=== PATIENT | male | born 1950 | race African-American/Black ===

== ENCOUNTER → 2020-06-20 13:57 | Outpatient (BNVA) | payer MEDICARE, SELFPAY | PROVIDERS: PCP Internal Medicine; Referring Provider Internal Medicine; Visit Provider Urology | DX: Z76.89 Persons encountering health services in other specified circumstances (principal) ==

== ENCOUNTER 2020-09-24 10:00 | Outpatient (REF) | payer MEDICARE, SELFPAY ==
[2020-09-24 15:17] LABS: Prostate Specific Antigen < 0.05 ng/mL (<0.05-4.0)
== END 2020-09-24 10:01 | disposition home or self-care (01) ==
LOC: HO.10HDL 10:00
PROVIDERS: Visit Provider Urology
DX: C61 Malignant neoplasm of prostate (principal)
CPT/HCPCS: 36415; 84153

== ENCOUNTER → 2020-09-25 14:15 | Outpatient (BNVA) | payer MEDICARE, SELFPAY | PROVIDERS: PCP Internal Medicine; Visit Provider Urology | DX: N52.01 Erectile dysfunction due to arterial insufficiency (principal); C61 Malignant neoplasm of prostate | CPT/HCPCS: 99212 ==

== ENCOUNTER 2020-12-03 11:38 | Outpatient (REF) | payer MEDICARE, SELFPAY ==
[2020-12-03 14:02] LABS: Prostate Specific Antigen < 0.05 ng/mL (<0.05-4.0)
[2020-12-07 08:17] LABS: Testosterone, Total 7 ng/dL (250-1100)
== END 2020-12-03 11:39 | disposition home or self-care (01) ==
LOC: HO.10HDL 11:38
PROVIDERS: Visit Provider Urology
DX: Z12.5 Encounter for screening for malignant neoplasm of prostate (principal); C61 Malignant neoplasm of prostate; E29.1 Testicular hypofunction
CPT/HCPCS: 36415; 84153; 84403

== ENCOUNTER → 2020-12-10 08:55 | Outpatient (BNVA) | payer MEDICARE, SELFPAY | PROVIDERS: PCP Internal Medicine; Visit Provider Urology | DX: C61 Malignant neoplasm of prostate (principal); R97.21 Rising PSA following treatment for malignant neoplasm of prostate | CPT/HCPCS: 96402; 99212; J9217 ==

== ENCOUNTER 2021-04-22 08:34 | Outpatient (REF) | payer MEDICARE, SELFPAY ==
[2021-04-22 11:03] LABS: Prostate Specific Antigen < 0.05 ng/mL (<0.05-4.0)
[2021-04-27 09:57] LABS: Testosterone, Total 2 ng/dL (250-1100)
== END 2021-04-22 08:35 | disposition home or self-care (01) ==
LOC: HO.10HDL 08:34
PROVIDERS: Visit Provider Urology
DX: Z12.5 Encounter for screening for malignant neoplasm of prostate (principal); N40.1 Benign prostatic hyperplasia with lower urinary tract symptoms; N13.8 Other obstructive and reflux uropathy
CPT/HCPCS: 36415; 84153; 84403

== ENCOUNTER → 2021-04-24 13:09 | Outpatient (BNVA) | payer MEDICARE, SELFPAY | PROVIDERS: PCP Internal Medicine; Visit Provider Urology | DX: R97.21 Rising PSA following treatment for malignant neoplasm of prostate (principal); C61 Malignant neoplasm of prostate | CPT/HCPCS: 99212 ==

== ENCOUNTER → 2021-06-05 09:26 | Outpatient (BNVA) | payer MEDICARE, SELFPAY | PROVIDERS: PCP Internal Medicine; Visit Provider Urology | DX: R97.21 Rising PSA following treatment for malignant neoplasm of prostate (principal); C61 Malignant neoplasm of prostate | CPT/HCPCS: 96402; 99212; J9217 ==

== ENCOUNTER 2021-09-04 09:33 | Outpatient (REF) | payer MEDICARE, SELFPAY ==
[2021-09-04 11:22] LABS: Prostate Specific Antigen < 0.05 ng/mL (<0.05-4.0)
[2021-09-09 15:06] LABS: Testosterone, Total 8 ng/dL (250-1100)
== END 2021-09-04 09:34 | disposition home or self-care (01) ==
LOC: HO.10HDL 09:33
PROVIDERS: Visit Provider Urology
DX: Z12.5 Encounter for screening for malignant neoplasm of prostate (principal); R97.20 Elevated prostate specific antigen [PSA]
CPT/HCPCS: 36415; 84153; 84403

== ENCOUNTER → 2021-12-18 09:22 | Outpatient (BNVA) | payer MEDICARE, SELFPAY | PROVIDERS: PCP Internal Medicine; Visit Provider Urology | DX: R97.20 Elevated prostate specific antigen [PSA] (principal); C61 Malignant neoplasm of prostate | CPT/HCPCS: 99212 ==

== ENCOUNTER 2021-12-18 10:29 | Outpatient (REF) | payer MEDICARE, SELFPAY ==
[2021-12-18 14:51] LABS: Prostate Specific Antigen 0.18 ng/mL (<0.05-4.0)
[2021-12-23 09:11] LABS: Testosterone, Total 2 ng/dL (250-1100)
== END 2021-12-18 10:30 | disposition home or self-care (01) ==
LOC: HO.HMGCLDS 10:29
PROVIDERS: Visit Provider Urology
DX: Z12.5 Encounter for screening for malignant neoplasm of prostate (principal); R97.21 Rising PSA following treatment for malignant neoplasm of prostate
CPT/HCPCS: 36415; 84153; 84403

== ENCOUNTER 2022-01-12 10:53 | Outpatient (REF) | payer MEDICARE, SELFPAY ==
[2022-01-12 14:34] LABS: Prostate Specific Antigen 0.32 ng/mL (<0.05-4.0)
[2022-01-17 11:06] LABS: Testosterone, Total 7 ng/dL (250-1100)
== END 2022-01-12 10:54 | disposition home or self-care (01) ==
LOC: HO.HMGCLDS 10:53
PROVIDERS: Visit Provider Urology
DX: R97.21 Rising PSA following treatment for malignant neoplasm of prostate (principal); Z12.5 Encounter for screening for malignant neoplasm of prostate
CPT/HCPCS: 36415; 84153; 84403

== ENCOUNTER 2022-03-20 08:05 | Outpatient (REF) | payer MEDICARE, SELFPAY ==
--- NOTE | ~2022-03-20 | MM_ITS ---
EXAMINATION: BONE DENSITOMETRY CLINICAL INDICATION: Other specified disorders of bone density and structure. COMPARISON: None (current study represents initial baseline exam). TECHNIQUE: Using a [employer] DXA System (software version: 13.1) manufactured by [employer], dual-energy x-ray absorptiometry was performed of the lumbar spine and left hip. The images are of good technical quality. Summary results are attached. FINDINGS: AP SPINE L1-L4: BMD 1.408 g/cm2, Z-score 1.0, T-score 1.6, normal. LEFT FEMUR, NECK: BMD 1.048 g/cm2, Z-score -0.2, T-score -0.2, normal. LEFT FEMUR, TOTAL: BMD 1.077 g/cm2, Z-score -0.6, T-score -0.2, normal. IDENTIFIED RISK FACTORS: Height loss, thiazide. HISTORY OF FRACTURE: None listed. MEDICATIONS: Vitamin D. MM/XR DEXA axial skeleton IMPRESSION: 1. DIAGNOSIS: Normal bone density based on the lowest T-score value of -0.2 in the femoral neck and total femur applying World Health Organization criteria. 2. 10-YEAR FRACTURE RISK PREDICTION, FRAX: According to the guidelines, FRAX calculation should only be performed on patients in the osteopenia bone density category. Therefore, FRAX was not performed on this patient. 3. Treatment Recommendations: NOF guidelines recommend consideration for treatment in postmenopausal women and men age 50 and older presenting with the following: -A hip or vertebral (clinical or morphometric) fracture. -T-score less than or equal to -2.5 at the femoral neck or spine after appropriate evaluation to exclude secondary causes. -Low bone mass at the hip or spine and a 10-year fracture probability by FRAX of greater than or equal to 3% for hip fracture or greater than or equal to 20% for major osteoporotic fracture based on the [place] adapted WHO algorithm. 4. Other Recommendations: All treatment decisions require clinical judgment and consideration of individual patient factors, including patient preferences, comorbidities, previous drug use, risk factors not captured in the FRAX model (e.g. frailty, falls, vitamin D deficiency, increased bone turnover, interval significant decline in bone density) and possible under or overestimation of fracture risk by FRAX. FUTURE SCAN RECOMMENDATION: People with diagnosed cases of osteoporosis or at high risk for fracture should have regular bone mineral density tests. For patients eligible for Medicare, routine testing is allowed once every 2 years. The testing frequency can be increased to one year for patients who have rapidly progressing disease, those who are receiving or discontinuing medical therapy to restore bone mass, or have additional risk factors.
== END 2022-03-20 08:06 | disposition home or self-care (01) ==
LOC: HO.MAMMO 08:05
PROVIDERS: Visit Provider Urology
DX: Z13.820 Encounter for screening for osteoporosis (principal); M85.80 Other specified disorders of bone density and structure, unspecified site; R97.21 Rising PSA following treatment for malignant neoplasm of prostate; Z79.899 Other long term (current) drug therapy
CPT/HCPCS: 77080

== ENCOUNTER → 2022-04-17 08:31 | Outpatient (BNVA) | payer MEDICARE, SELFPAY | PROVIDERS: PCP Internal Medicine; Visit Provider Urology | DX: C61 Malignant neoplasm of prostate (principal); R97.21 Rising PSA following treatment for malignant neoplasm of prostate | CPT/HCPCS: 99212 ==

== ENCOUNTER 2022-07-28 09:21 | Outpatient (REF) | payer MEDICARE, SELFPAY ==
[2022-08-01 14:26] LABS: Testosterone, Total 199 ng/dL (250-1100)
== END 2022-07-28 09:22 | disposition home or self-care (01) ==
LOC: HO.HMGCLDS 09:21
PROVIDERS: PCP Internal Medicine; Visit Provider Urology
DX: R97.21 Rising PSA following treatment for malignant neoplasm of prostate (principal); Z12.5 Encounter for screening for malignant neoplasm of prostate
CPT/HCPCS: 36415; 84153; 84403

== ENCOUNTER → 2022-08-12 14:15 | Outpatient (BNVA) | payer MEDICARE, SELFPAY | PROVIDERS: PCP Internal Medicine; Visit Provider Urology | DX: R97.21 Rising PSA following treatment for malignant neoplasm of prostate (principal); C61 Malignant neoplasm of prostate; N52.9 Male erectile dysfunction, unspecified; Z79.899 Other long term (current) drug therapy | CPT/HCPCS: 99212 ==

== ENCOUNTER → 2022-09-03 13:46 | Outpatient (BNVA) | payer MEDICARE, SELFPAY | PROVIDERS: PCP Internal Medicine; Visit Provider Urology | DX: C61 Malignant neoplasm of prostate (principal) | CPT/HCPCS: 96402; J9217 ==

== ENCOUNTER → 2022-09-17 11:40 | Outpatient (BNVA) | payer MEDICARE, SELFPAY | PROVIDERS: PCP Internal Medicine; Visit Provider Urology | DX: R97.20 Elevated prostate specific antigen [PSA] (principal); C61 Malignant neoplasm of prostate | CPT/HCPCS: Q3014 ==

== ENCOUNTER 2022-10-06 13:59 | Outpatient (REF) | payer MEDICARE, SELFPAY ==
[2022-10-06 16:55] LABS: Blood Urea Nitrogen 18 mg/dL (9-16); Estimated Glomerular Filt Rate 59
[2022-10-06 17:11] LABS: Prostate Specific Antigen 9.21 ng/mL (<0.05-4.0)
[2022-10-11 13:44] LABS: Testosterone, Total 4 ng/dL (250-1100)
== END 2022-10-06 14:00 | disposition home or self-care (01) ==
LOC: HO.HMGCLDS 13:59
PROVIDERS: PCP Internal Medicine; Visit Provider Urology
DX: Z12.5 Encounter for screening for malignant neoplasm of prostate (principal); R97.21 Rising PSA following treatment for malignant neoplasm of prostate
CPT/HCPCS: 36415; 82565; 84153; 84403; 84520

== ENCOUNTER → 2022-10-15 15:13 | Outpatient (BNVA) | payer MEDICARE, SELFPAY | PROVIDERS: PCP Internal Medicine; Visit Provider Urology | DX: C61 Malignant neoplasm of prostate (principal); N52.01 Erectile dysfunction due to arterial insufficiency | CPT/HCPCS: Q3014 ==

== ENCOUNTER 2023-03-01 10:55 | Outpatient (REF) | payer MEDICARE, SELFPAY ==
[2023-03-01 14:18] LABS: Blood Urea Nitrogen 20 mg/dL (9-16); Estimated Glomerular Filt Rate 58
[2023-03-01 14:38] LABS: Prostate Specific Antigen 19.81 ng/mL (<0.05-4.0)
[2023-03-07 12:33] LABS: Testosterone, Total 6 ng/dL (250-1100)
== END 2023-03-01 10:56 | disposition home or self-care (01) ==
LOC: HO.HMGCLDS 10:55
PROVIDERS: PCP Internal Medicine; Visit Provider Urology
DX: R39.15 Urgency of urination (principal); R97.21 Rising PSA following treatment for malignant neoplasm of prostate; Z12.5 Encounter for screening for malignant neoplasm of prostate
CPT/HCPCS: 36415; 82565; 84153; 84403; 84520

== ENCOUNTER 2023-04-02 13:20 | Outpatient (AMB) | payer MEDICARE, SELFPAY ==
--- NOTE | 2023-04-02 13:20 | A.OFFVIS_ITS ---
Intake Intake Visit Reasons: PET CT results/Send results to Dr. Norris([facility]?) Intake Note: Patient is present for Telephone PET CT Follow up Urology Med: Bicalutamide, Tadalafil Antibiotic Allergy: Priamycin Blood Thinner:None Allergies aspirin Adverse Reaction (Unknown, Verified 04/02/23 13:25) stomach upset priamycin Allergy (Unknown, Uncoded 04/02/23 13:25) rash HPI HPI Comments History of Present Illness Details Saadia is a very pleasant [place] male. He is a patient of Dr Smiley. He is seen for the following urologic conditions - prostate cancer Telemedicine Evaluation 15 min Consultation Doximity Viola Video attempted 04/11 PSA continuing to rise now 19, T6 Repeated PET-CT at [facility] Confirms tracer uptake in prostate and no evidence of metastatic disease Has upcoming appointment with Dr. Gardner for assessment of boost radiation 4 month follow-up 09/10 GnRH re-initiated 09/03/22 after 2 weeks bicalutamide MRI shows recurrent disease within prostate Radiation Oncology assessment 10/12 Dr. Mcelroy at [facility] Referral to [facility] Dr. Gardner PSA - 10/10 PSA < 0.05, 12/08 PSA < 0.05 T 7, 05/10 <0.01, 09/09 <0.1 8, 01/09 0.3 7, 08/11 P 23 T 199, 10/12 9.2 T4, 03/12 19 Prostate cancer: Initial [place] 6 treatment brachytherapy 2007 followed by ris ing PSA Last GnRH 09/03/22 Prostate cancer was diagnosed 2007. The [place] grade is 3+3 volume 27 g, initial PSA 6.4. TNM Classification of Malignant Tumours (TNM) T1c. The D'Jyoti (NCCN) risk category is Low Risk (PSA< 10, Gl < 7, T1c). Initial therapy included 2007 brachytherapy, - observation November 2015, hormonal therapy finasteride and bicalutamide Oct 2016 Finasteride, bicalutamide, tamoxifen for breast tenderness Jun 2017 Finasteride 3x a week, bicalutamide daily, tamoxifen weekly 01/05 Dutasteride daily, tamoxifen weekly for breast tenderness 06/20/20 GnRH with Xtandi - 12/08 GnRH, 06/10 GnRH - 12/09 break from hormone therapy Recent labs included a PSA (prostate-specific antigen) Jun 2017 1.0 01/05 4.5 T 795 04/06 5.9 07/07 PSA 0.2 T 54 10/08 PSA < 0.1, T < 12, 04/07 PSA < 0.1, T < 20 10/09 9.2 T 100, 06/09 4.4 T 16 Recent imaging included January 2015 Bone scan , with no evidence of metastasis - 11/09 , an MRI (magnetic resonance imaging), seeds in prostate, 20 g prostate, diffuse changes. Consistent with persistent disease - 03/11 bone scan no evidence of osteopenia - 09/10 MRI recurrent disease within prostate, no evidence of extension, PI- RADS 5 Therapeutic plan: assessment for boost radiation - evaluated at [facility], referral to [facility] with Dr. Gardner Erectile dysfunction September 2020 - trial of daily tadalafil 10 mg [facility] Medical History BPH (benign prostatic hyperplasia) Breast tenderness Diabetes mellitus, type II Erectile dysfunction Hyperlipidemia Prostate cancer Surgical History History of surgery Review of Systems Const Denies chills and Denies fever(s) Card Reports no additional complaints and Denies syncope Resp Denies cough GI Denies abdominal pain and Denies heartburn Reports as per HPI and Denies change in libido Neuro Denies syncope Psych Denies change in libido Endo Denies change in libido Physical Exam Const General: cooperative, healthy appearing, comfortable and no acute distress Orientation/consciousness: patient oriented x3 HEENT Face and sinus: Yes normal facial exam Mouth: moist mucous membranes Neck Neck: Yes normal visual inspection, Yes full ROM and Yes trachea midline Chest Chest palpation & inspection: normal inspection of the chest Resp Effort & Inspection: normal respiratory effort, able to speak in complete sentences and no respiratory distress GI Inspection: Yes normal to inspection Back/Spine/Pelvis Cervical Spine: normal cervical lordosis Thoracic/Lumbar Spine: thoracic and lumbar spine normal to inspection Skin General skin exam: no rashes or lesions noted Neuro General: patient oriented x3, gait normal, tone normal and moves all extremities Extrem General: Yes normal to inspection and Yes capillary refill normal Assessment & Plan Assessment & Plan (1) Rising PSA following treatment for malignant neoplasm of prostate: Code(s): R97.21 - Rising PSA following treatment for malignant neoplasm of prostate (2) Prostate cancer: Code(s): C61 - Malignant neoplasm of prostate Plan 4 month follow-up Patient Instructions: Imaging studies, laboratory and physical exam results were discussed and reviewed in detail. No major barriers to patient understanding were identified. An opportunity to ask questions regarding the treatment plan was provided. All questions were answered. The patient expressed understanding and agreement with the above treatment plan. The patient is aware they should contact our office by phone for worsening of their current condition or the appearance of new urologic symptoms. Compliance is encouraged with any medications and followup testing that is ordered. It is a privilege to participate in the urologic care of your patient. If you have any questions or concerns regarding treatment for the above conditions, or other urologic issues, please do not hesitate to contact me. The office telephone contact is [phone]. This note is constructed using voice recognition software. While every effort has been made to ensure accuracy architect in training errors may have been included. Yours sincerely, Dr Fermin Haider MD, DELMA [facility] - Urology Providers of Expert, Compassionate Care for the Genitourinary System Telehealth Telehealth Location of provider rendering services: practice address Location of patient: address on file Patient Identification confirmed using: Name, : Yes Telehealth method: video Patient verbally consented to treatment: Yes Patient verbally consented to billing insurance company: Yes Patient informed of any privacy concerns related to visit: Yes Coding Level of Care Code Tele Est Pt Level 3 (12499) Diagnoses Rising PSA following treatment for malignant neoplasm of prostate R97.21 Prostate cancer C61
== END 2023-04-02 14:09 | disposition home or self-care (01) ==
LOC: HO.HUSH 13:20
PROVIDERS: PCP Internal Medicine; Visit Provider Urology
DX: R97.21 Rising PSA following treatment for malignant neoplasm of prostate (principal); C61 Malignant neoplasm of prostate
CPT/HCPCS: 99213

== ENCOUNTER → 2023-04-02 13:20 | Outpatient (BNVA) | payer MEDICARE, SELFPAY | PROVIDERS: PCP Internal Medicine; Visit Provider Urology | DX: R97.21 Rising PSA following treatment for malignant neoplasm of prostate (principal); C61 Malignant neoplasm of prostate | CPT/HCPCS: Q3014 ==

== ENCOUNTER 2023-07-27 14:22 | Outpatient (AMB) | payer MEDICARE, SELFPAY ==
--- NOTE | 2023-07-27 14:32 | A.OFFVIS_ITS ---
Intake Intake Visit Reasons: 4m follow up Intake Note: Patient is Present for Follow Up Urology Medication: Bicalutamide, Tadalafil Antibiotic Allergies: None Allergies aspirin Adverse Reaction (Unknown, Verified 07/27/23 14:34) stomach upset priamycin Allergy (Unknown, Uncoded 07/27/23 14:34) rash Medication List - Last Reconciled 07/27/23 by Fermin Haider MD amlodipine 5 mg PO DAILY atorvastatin 80 mg PO DAILY bicalutamide 50 mg PO DAILY 15 days bicalutamide 50 mg PO DAILY 30 days bisacodyl 10 mg PO DIRECTED celecoxib mg PO diclofenac sodium 1% 4 grams topical BID doxycycline hyclate 100 mg PO BID ergocalciferol (vitamin D2) 1,250 mcg PO QWEEK ferrous sulfate 325 mg PO Q OTHER DAY glipizide ER 5 mg PO DAILY hydrochlorothiazide 12.5 mg PO DAILY lisinopril 5 mg PO DAILY metformin mg PO omeprazole 20 mg PO QAM peg 3350-electrolytes 236-22.74-6.74 -5.86 gram mL PO tadalafil 5 mg PO DAILY PRN 90 days HPI HPI Comments History of Present Illness Details Saadia is a very pleasant [place] male. He is a patient of Dr Smiley . He is seen for the following urologic conditions - prostate cancer 08/12 has not been contacted through [facility] Referral placed Labs performed Restart bicalutamide GnRH week August 26 PSA continuing to rise now 19, T6 Repeated PET-CT at [facility] Confirms tracer uptake in prostate and no evidence of metastatic disease Has upcoming appointment with Dr. Gardner for assessment of boost radiation 4 month follow-up 09/10 GnRH re-initiated 09/03/22 after 2 weeks bicalutamide MRI shows recurrent disease within prostate Radiation Oncology assessment 10/12 Dr. Mcelroy at [facility] Referral to [facility] Dr. Gardner PSA - 10/10 PSA < 0.05, 12/08 PSA < 0.05 T 7, 05/10 <0.01, 09/09 <0.1 8, 01/09 0.3 7, 08/11 P 23 T 199, 10/12 9.2 T4, 03/12 19 Prostate cancer: Initial [place] 6 treatment brachytherapy 2007 followed by rising PSA Last GnRH 09/03/22 Prostate cancer was diagnosed 2007. The [place] grade is 3+3 volume 27 g, initial PSA 6.4. TNM Classification of Malignant Tumours (TNM) T1c. The D'Jyoti (NCCN) risk category is Low Risk (PSA< 10, Gl < 7, T1c). Initial therapy included 2007 brachytherapy, - observation November 2015, hormonal therapy finasteride and bicalutamide Oct 2016 Finasteride, bicalutamide, tamoxifen for breast tenderness Jun 2017 Finasteride 3x a week, bicalutamide daily, tamoxifen weekly 01/05 Dutasteride daily, tamoxifen weekly for breast tenderness 06/20/20 GnRH with Xtandi - 12/08 GnRH, 06/10 GnRH - 12/09 break from hormone therapy Recent labs included a PSA (prostate-specific antigen) Jun 2017 1.0 01/05 4.5 T 795 04/06 5.9 07/07 PSA 0.2 T 54 10/08 PSA < 0.1, T < 12, 04/07 PSA < 0.1, T < 20 10/09 9.2 T 100, 06/09 4.4 T 16 Recent imaging included January 2015 Bone scan , with no evidence of metastasis - 11/09 , an MRI (magnetic resonance imaging), seeds in prostate, 20 g prostate, diffuse changes. Consistent with persistent disease - 03/11 bone scan no evidence of osteopenia - 09/10 MRI recurrent disease within prostate, no evidence of extension, PI- RADS 5 Therapeutic plan: assessment for boost radiation - evaluated at [facility], referral to [facility] with Dr. Gardner Erectile dysfunction September 2020 - trial of daily tadalafil 10 mg PFSH Medical History Hyperlipidemia Diabetes mellitus, type II Breast tenderness Erectile dysfunction BPH (benign prostatic hyperplasia) Prostate cancer Surgical History History of surgery Review of Systems Const Denies chills and Denies fever(s) Card Reports no additional complaints and Denies syncope Resp Denies cough GI Denies abdominal pain and Denies heartburn Reports as per HPI and Denies change in libido Neuro Denies syncope Psych Denies change in libido Endo Denies change in libido Physical Exam Const General: cooperative, healthy appearing, comfortable and no acute distress Orientation/consciousness: patient oriented x3 HEENT Face and sinus: Yes normal facial exam Mouth: moist mucous membranes Neck Neck: Yes normal visual inspection, Yes full ROM and Yes trachea midline Chest Chest palpation & inspection: normal inspection of the chest Resp Effort & Inspection: normal respiratory effort, able to speak in complete sentences and no respiratory distress GI Inspection: Yes normal to inspection Back/Spine/Pelvis Cervical Spine: normal cervical lordosis Thoracic/Lumbar Spine: thoracic and lumbar spine normal to inspection Skin General skin exam: no rashes or lesions noted Neuro General: patient oriented x3, gait normal, tone normal and moves all extremities Extrem General: Yes normal to inspection and Yes capillary refill normal Assessment & Plan Assessment & Plan (1) Erectile dysfunction due to arterial insufficiency: Code(s): N52.01 - Erectile dysfunction due to arterial insufficiency (2) Prostate cancer: Code(s): C61 - Malignant neoplasm of prostate (3) Rising PSA following treatment for malignant neoplasm of prostate: Code(s): R97.21 - Rising PSA following treatment for malignant neoplasm of prostate Plan GnRH August Orders: Orders Testosterone, Total Today C61 - Malignant neoplasm of prostate, R97.21 - Rising PSA following treatment for malignant neoplasm of prostate Prostate Specific Antigen Today E11.69 - Type 2 diabetes mellitus with other specified complication, N52.1 - Erectile dysfunction due to diseases classified elsewhere, R97.21 - Rising PSA following treatment for malignant neoplasm of prostate Medications: New bicalutamide 50 mg PO DAILY 30 tabs 0RF 30 days C61 - Malignant neoplasm of prostate, R97.21 - Rising PSA following treatment for malignant neoplasm of prostate Patient Instructions: Imaging studies, laboratory and physical exam results were discussed and reviewed in detail. No major barriers to patient understanding were identified. An opportunity to ask questions regarding the treatment plan was provided. All questions were answered. The patient expressed understanding and agreement with the above treatment plan. The patient is aware they should contact our office by phone for worsening of their current condition or the appearance of new urologic symptoms. Compliance is encouraged with any medications and followup testing that is ordered. It is a privilege to participate in the urologic care of your patient. If you have any questions or concerns regarding treatment for the above conditions, or other urologic issues, please do not hesitate to contact me. The office telephone contact is [phone]. This note is constructed using voice recognition software. While every effort has been made to ensure accuracy flame hardening machine setter errors may have been included. Yours sincerely, Dr Fermin Haider MD, DELMA [facility] - Urology Providers of Expert, Compassionate Care for the Genitourinary System Coding Level of Care Code Est Pt Level 3 (18113) Diagnoses Erectile dysfunction due to arterial insufficiency N52.01 Prostate cancer C61 Rising PSA following treatment for malignant neoplasm of prostate R97.21
== END 2023-07-27 14:55 | disposition home or self-care (01) ==
PROVIDERS: PCP Internal Medicine; Visit Provider Urology
DX: N52.01 Erectile dysfunction due to arterial insufficiency (principal); C61 Malignant neoplasm of prostate; R97.21 Rising PSA following treatment for malignant neoplasm of prostate
CPT/HCPCS: 99213

== ENCOUNTER → 2023-07-27 14:22 | Outpatient (BNVA) | payer MEDICARE, SELFPAY | PROVIDERS: PCP Internal Medicine; Visit Provider Urology | DX: C61 Malignant neoplasm of prostate (principal); R97.21 Rising PSA following treatment for malignant neoplasm of prostate; E11.69 Type 2 diabetes mellitus with other specified complication; N52.01 Erectile dysfunction due to arterial insufficiency | CPT/HCPCS: 99212 ==

== ENCOUNTER 2023-07-28 09:15 | Outpatient (REF) | payer MEDICARE, SELFPAY ==
[2023-07-28 12:08] LABS: Prostate Specific Antigen 91.23 ng/mL (<0.05-4.0)
[2023-07-31 23:09] LABS: Testosterone, Total 137 ng/dL (250-1100)
== END 2023-07-28 09:16 | disposition home or self-care (01) ==
LOC: HO.HMGCLDS 09:15
PROVIDERS: PCP Internal Medicine; Visit Provider Urology
DX: C61 Malignant neoplasm of prostate (principal); R97.21 Rising PSA following treatment for malignant neoplasm of prostate; E11.69 Type 2 diabetes mellitus with other specified complication; N52.1 Erectile dysfunction due to diseases classified elsewhere; Z12.5 Encounter for screening for malignant neoplasm of prostate
CPT/HCPCS: 36415; 84153; 84403

== ENCOUNTER 2023-09-08 13:01 | Outpatient (AMB) | payer MEDICARE, SELFPAY ==
--- NOTE | 2023-09-08 13:24 | A.OFFVIS_ITS ---
Intake Intake Visit Reasons: GnRH/labs Intake Note: Patient is Present for Follow Up LABS/Eligard Injection Urology Medication: Bicalutamide, Tadalafil, Eligard Antibiotic Allergies: Priamycin Blood Thinners: None Allergies aspirin Adverse Reaction (Unknown, Verified 07/27/23 14:34) stomach upset priamycin Allergy (Unknown, Uncoded 07/27/23 14:34) rash HPI HPI Comments History of Present Illness Details Saadia is a very pleasant [place] male. He is a patient of Dr Smiley. He is seen for the following urologic conditions - prostate cancer Here for GnRH Has been on bicalutamide Repeat labs in 4 weeks 08/12 has not been contacted through [facility] PSA 08/01 92, T 137 Restart bicalutamide GnRH August 26 PSA continuing to rise now 19, T6 Repeated PET-CT at [facility] Confirms tracer uptake in prostate and no evidence of metastatic disease Has upcoming appointment with Dr. Gardner for assessment of boost radiation 4 month follow-up 09/10 GnRH re-initiated 09/03/22 after 2 weeks bicalutamide MRI shows recurrent disease within prostate Radiation Oncology assessment 10/12 Dr. Mcelroy at [facility] Referral to [facility] Dr. Gardner PSA - 10/10 PSA < 0.05, 12/08 PSA < 0.05 T 7, 05/10 <0.01, 09/09 <0.1 8, 01/09 0.3 7, 08/11 P 23 T 199, 10/12 9.2 T4, 03/12 19 Prostate cancer: Initial [place] 6 treatment brachytherapy 2007 followed by rising PSA Last GnRH 09/03/22 Prostate cancer was diagnosed 2007. The [place] grade is 3+3 volume 27 g, initial PSA 6.4. TNM Classification of Malignant Tumours (TNM) T1c. The D'Jyoti (NCCN) risk category is Low Risk (PSA< 10, Gl < 7, T1c). Initial therapy included 2007 brachytherapy, - observation November 2015, hormonal therapy finasteride and bicalutamide Oct 2016 Finasteride, bicalutamide, tamoxifen for breast tenderness Jun 2017 Finasteride 3x a week, bicalutamide daily, tamoxifen weekly 01/05 Dutasteride daily, tamoxifen weekly for breast tenderness 06/20/20 GnRH with Xtandi - 12/08 GnRH, 06/10 GnRH - 12/09 break from hormone therapy Recent labs included a PSA (prostate-specific antigen) Jun 2017 1.0 01/05 4.5 T 795 04/06 5.9 07/07 PSA 0.2 T 54 10/08 PSA < 0.1, T < 12, 04/07 PSA < 0.1, T < 20 10/09 9.2 T 100, 06/09 4.4 T 16 Recent imaging included January 2015 Bone scan , with no evidence of metastasis - 11/09 , an MRI (magnetic resonance imaging), seeds in prostate, 20 g prostate, diffuse changes. Consistent with persistent disease - 03/11 bone scan no evidence of osteopenia - 09/10 MRI recurrent disease within prostate, no evidence of extension, PI- RADS 5 - 03/12 PET-CT residual disease within prostate, no disease defined elsewhere Therapeutic plan: assessment for boost radiation - evaluated at [facility], referral to [facility] with Dr. Gardner Erectile dysfunction September 2020 - trial of daily tadalafil 10 mg [facility] Medical History Hyperlipidemia Diabetes mellitus, type II Breast tenderness Erectile dysfunction BPH (benign prostatic hyperplasia) Prostate cancer Surgical History History of surgery Review of Systems Const Denies chills and Denies fever(s) Card Reports no additional complaints and Denies syncope Resp Denies cough GI Denies abdominal pain and Denies heartburn Reports as per HPI and Denies change in libido Neuro Denies syncope Psych Denies change in libido Endo Denies change in libido Physical Exam Const General: cooperative, healthy appearing, comfortable and no acute distress Orientation/consciousness: patient oriented x3 HEENT Face and sinus: Yes normal facial exam Mouth: moist mucous membranes Neck Neck: Yes normal visual inspection, Yes full ROM and Yes trachea midline Chest Chest palpation & inspection: normal inspection of the chest Resp Effort & Inspection: normal respiratory effort, able to speak in complete sentences and no respiratory distress GI Inspection: Yes normal to inspection Back/Spine/Pelvis Cervical Spine: normal cervical lordosis Thoracic/Lumbar Spine: thoracic and lumbar spine normal to inspection Skin General skin exam: no rashes or lesions noted Neuro General: patient oriented x3, gait normal, tone normal and moves all extremities Extrem General: Yes normal to inspection and Yes capillary refill normal Office Meds Eligard (6 month) 45 mg (6 month) subcutaneous syringe Performing Provider: Fermin Haider MD [facility] Administered by: Ashli Lopez RN on 09/08/23 13:33 Dose Route Admin Location Dispensed Lot Number Expiration Date NDC Siderographist 45 mg subcut RLQ 45 mg [id number] 09/20/24 24861-829-76 [employer]. Assessment & Plan Assessment & Plan (1) Rising PSA following treatment for malignant neoplasm of prostate: Code(s): R97.21 - Rising PSA following treatment for malignant neoplasm of prostate (2) Prostate cancer: Code(s): C61 - Malignant neoplasm of prostate Plan Four-week follow-up tele labs Orders: Orders AMB Leuprolide Injection - Practice Supplied Today C61 - Malignant neoplasm of prostate Testosterone, Total 4 Weeks C61 - Malignant neoplasm of prostate, R97.21 - Rising PSA following treatment for malignant neoplasm of prostate Prostate Specific Antigen 4 Weeks R97.21 - Rising PSA following treatment for malignant neoplasm of prostate Patient Instructions: Imaging studies, laboratory and physical exam results were discussed and reviewed in detail. No major barriers to patient understanding were identified. An opportunity to ask questions regarding the treatment plan was provided. All questions were answered. The patient expressed understanding and agreement with the above treatment plan. The patient is aware they should contact our office by phone for worsening of their current condition or the appearance of new urologic symptoms. Compliance is encouraged with any medications and followup testing that is ordered. It is a privilege to participate in the urologic care of your patient. If you have any questions or concerns regarding treatment for the above conditions, or other urologic issues, please do not hesitate to contact me. The office telephone contact is [phone]. This note is constructed using voice recognition software. While every effort has been made to ensure accuracy cage tender errors may have been included. Yours sincerely, Dr Fermin Haider MD, DELMA [facility] - Urology Providers of Expert, Compassionate Care for the Genitourinary System Coding Level of Care Code Est Pt Level 3 (04924) Diagnoses Rising PSA following treatment for malignant neoplasm of prostate R97.21 Prostate cancer C61
== END 2023-09-08 13:52 | disposition home or self-care (01) ==
PROVIDERS: PCP Internal Medicine; Visit Provider Urology
DX: R97.21 Rising PSA following treatment for malignant neoplasm of prostate (principal); C61 Malignant neoplasm of prostate
CPT/HCPCS: 99213

== ENCOUNTER → 2023-09-08 13:01 | Outpatient (BNVA) | payer MEDICARE, SELFPAY | PROVIDERS: PCP Internal Medicine; Visit Provider Urology | DX: R97.21 Rising PSA following treatment for malignant neoplasm of prostate (principal); C61 Malignant neoplasm of prostate | CPT/HCPCS: 96402; 99212; J9217 ==

== ENCOUNTER 2023-10-11 09:08 | Outpatient (REF) | payer MEDICARE, SELFPAY ==
[2023-10-11 12:28] LABS: Prostate Specific Antigen 22.31 ng/mL (<0.05-4.0)
[2023-10-15 13:33] LABS: Testosterone, Total 10 ng/dL (250-1100)
== END 2023-10-11 09:09 | disposition home or self-care (01) ==
LOC: HO.HMGCLDS 09:08
PROVIDERS: Urology; PCP Internal Medicine; Visit Provider Psychiatry & Neurology Neurology
DX: Z12.5 Encounter for screening for malignant neoplasm of prostate (principal); C61 Malignant neoplasm of prostate; R97.21 Rising PSA following treatment for malignant neoplasm of prostate
CPT/HCPCS: 36415; 84153; 84403

== ENCOUNTER 2023-10-21 11:15 | Outpatient (AMB) | payer MEDICARE, SELFPAY ==
--- NOTE | 2023-10-21 10:46 | A.OFFVIS_ITS ---
Intake Intake Visit Reasons: PSA/Testosterone(set) Intake Note: Patient presents today for a follow-up Meds- Tadalafil Allergies to Antibiotic- No Known Allergies Blood Thinner- None Outreach Director Required: No Accompanied by: Self / Same As Patient Allergies aspirin Adverse Reaction (Unknown, Verified 10/21/23 10:47) stomach upset priamycin Allergy (Unknown, Uncoded 10/21/23 10:47) rash HPI HPI Comments History of Present Illness Details Saadia is a very pleasant [place] male. He is a patient of Dr Smiley. He is seen for the following urologic conditions - prostate cancer Telemedicine Evaluation 15 min Consultation Doximity Viola Video attempted 10/13 PSA 22 T 10 - PSA has dropped, repe at in 6 weeks. If not fully normalizing would add abiraterone. Would like referral to [facility]. Will refer to Dr. Richardson. 08/12 has not been contacted through [facility] PSA 08/01/23 92, T 137 Restart bicalutamide GnRH week August 26 PSA continuing to rise now 19, T6 Repeated PET-CT at [facility] Confirms tracer uptake in prostate and no evidence of metastatic disease Has upcoming appointment with Dr. Gardner for assessment of boost radiation 4 month follow-up 09/10 GnRH re-initiated 09/03/22 after 2 weeks bicalutamide MRI shows recurrent disease within prostate Radiation Oncology assessment 10/12 Dr. Mcelroy at [facility] Referral to [facility] Dr. Gardner PSA - 10/10 PSA < 0.05, 12/08 PSA < 0.05 T 7, 05/10 <0.01, 09/09 <0.1 8, 01/09 0.3 7, 08/11 P 23 T 199, 10/12 9.2 T4, 03/12 19 Prostate cancer: Initial Marilu 6 treatment brachytherapy 2007 followed by rising PSA Last GnRH 09/03/22 Prostate cancer was diagnosed 2007. The [place] grade is 3+3 volume 27 g, initial PSA 6.4. TNM Classification of Malignant Tumours (TNM) T1c. The D'Jyoti (NCCN) risk category is Low Risk (PSA< 10, Gl < 7, T1c). Initial therapy included 2007 brachytherapy, - observation November 2015, hormonal therapy finasteride and bicalutamide Oct 2016 Finasteride, bicalutamide, tamoxifen for breast tenderness Jun 2017 Finasteride 3x a week, bicalutamide daily, tamoxifen weekly 01/05 Dutasteride daily, tamoxifen weekly for breast tenderness 06/20/20 GnRH with Xtandi - 12/08 GnRH, 06/10 GnRH - 12/09 break from hormone therapy Recent labs included a PSA (prostate-specific antigen) Jun 2017 1.0 01/05 4.5 T 795 04/06 5.9 07/07 PSA 0.2 T 54 10/08 PSA < 0.1, T < 12, 04/07 PSA < 0.1, T < 20 10/09 9.2 T 100, 06/09 4.4 T 16 Recent imaging included January 2015 Bone scan , with no evidence of metastasis - 11/09 , an MRI (magnetic resonance imaging), seeds in prostate, 20 g prostate, diffuse changes. Consistent with persistent disease - 03/11 bone scan no evidence of osteopenia - 09/10 MRI recurrent disease within prostate, no evidence of extension, PI- RADS 5 - 03/12 PET-CT residual disease within prostate, no disease defined elsewhere Therapeutic plan: assessment for boost radiation - evaluated at [facility], referral to [facility] with Dr. Gardner Erectile dysfunction September 2020 - trial of daily tadalafil 10 mg [facility] Medical History Hyperlipidemia Diabetes mellitus, type II Breast tenderness Erectile dysfunction BPH (benign prostatic hyperplasia) Prostate cancer Surgical History History of surgery Review of Systems Const All systems reviewed & are unremarkable except as noted in HPI and below Reports no additional complaints Resp Reports no additional complaints GI Reports no additional complaints Reports as per HPI Musc Reports no additional complaints Physical Exam Telemedicine evaluation Appropriate responses Regular breathing rate and rhythm HEENT Head: Yes normal to inspection Ears: hearing grossly normal bilaterally Eyes General: appearance normal, both eyes and all related structures Neck Neck: Yes normal visual inspection Chest Chest palpation & inspection: normal inspection of the chest Resp Effort & Inspection: normal respiratory effort and able to speak in complete sentences Assessment & Plan Assessment & Plan (1) Prostate cancer: Code(s): C61 - Malignant neoplasm of prostate (2) Biochemically recurrent castration-sensitive adenocarcinoma of prostate: Code(s): C61 - Malignant neoplasm of prostate; R97.21 - Rising PSA following treatment for malignant neoplasm of prostate; Z19.1 - Hormone sensitive malignancy status Plan Referral to [facility] radiation oncology Repeat PSA 6 weeks Orders: Orders Prostate Specific Antigen 6 Weeks E11.69 - Type 2 diabetes mellitus with other specified complication, N52.1 - Erectile dysfunction due to diseases classified elsewhere, R97.21 - Rising PSA following treatment for malignant neoplasm of prostate Referrals Radiation Oncology Referral R97.21 - Rising PSA following treatment for malignant neoplasm of prostate Patient Instructions: Imaging studies, laboratory and physical exam results were discussed and reviewed in detail. No major barriers to patient understanding were identified. An opportunity to ask questions regarding the treatment plan was provided. All questions were answered. The patient expressed understanding and agreement with the above treatment plan. The patient is aware they should contact our office by phone for worsening of their current condition or the appearance of new urologic symptoms. Compliance is encouraged with any medications and followup testing that is ordered. It is a privilege to participate in the urologic care of your patient. If you have any questions or concerns regarding treatment for the above conditions, or other urologic issues, please do not hesitate to contact me. The office telephone contact is [phone]. This note is constructed using voice recognition software. While every effort has been made to ensure accuracy wet washer machine errors may have been included. Yours sincerely, Dr Fermin Haider MD, DELMA [facility] - Urology Providers of Expert, Compassionate Care for the Genitourinary System Telehealth Telehealth Location of provider rendering services: practice address Location of patient: address on file Patient Identification confirmed using: Name, : Yes Telehealth method: video Patient verbally consented to treatment: Yes Patient verbally consented to billing insurance company: Yes Patient informed of any privacy concerns related to visit: Yes Coding Level of Care Code Tele Est Pt Level 3 (99125) Diagnoses Prostate cancer C61 Biochemically recurrent castration-sensitive adenocarcinoma of prostate C61; R97.21; Z19.1
== END 2023-10-21 12:18 | disposition home or self-care (01) ==
LOC: HO.HUSH 11:15
PROVIDERS: PCP Internal Medicine; Visit Provider Urology
DX: C61 Malignant neoplasm of prostate (principal); R97.21 Rising PSA following treatment for malignant neoplasm of prostate; Z19.1 Hormone sensitive malignancy status
CPT/HCPCS: 99213

== ENCOUNTER → 2023-10-21 11:15 | Outpatient (BNVA) | payer MEDICARE, SELFPAY | PROVIDERS: PCP Internal Medicine; Visit Provider Urology ==

== ENCOUNTER 2023-11-29 09:41 | Outpatient (REF) | payer MEDICARE, SELFPAY ==
[2023-11-29 13:46] LABS: Prostate Specific Antigen 25.75 ng/mL (<0.05-4.0)
== END 2023-11-29 09:42 | disposition home or self-care (01) ==
LOC: HO.HMGCLDS 09:41
PROVIDERS: PCP Internal Medicine; Visit Provider Urology
DX: E11.69 Type 2 diabetes mellitus with other specified complication (principal); N52.1 Erectile dysfunction due to diseases classified elsewhere; R97.21 Rising PSA following treatment for malignant neoplasm of prostate; Z12.5 Encounter for screening for malignant neoplasm of prostate
CPT/HCPCS: 36415; 84153

== ENCOUNTER 2023-12-07 13:58 | Outpatient (AMB) | payer MEDICARE, SELFPAY ==
--- NOTE | 2023-12-07 14:41 | MHC.OFFVIS ---
Intake Visit Reasons: 6W PSA(set) Intake Note: Patient is Present for Follow Up Urology Medication: Tadalafil Antibiotic Allergies: priamycin Blood Thinners: None Allergies aspirin Adverse Reaction (Unknown, Verified 10/21/23 10:47) stomach upset priamycin Allergy (Unknown, Uncoded 10/21/23 10:47) rash HPI Comments Details: Saadia is a very pleasant [place] male. He is a patient of Dr Smiley. 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 If not fully normalizing would add abiraterone. Would like referral to [facility]. Will refer to Dr. Richardson. 08/12 has not been contacted through [facility] PSA 08/01/23 92, T 137 Restart bicalutamide GnRH 1st week August 26 PSA continuing to rise now 19, T6 Repeated PET-CT at [facility] Confirms tracer uptake in prostate and no evidence of metastatic disease Has upcoming appointment with Dr. Gardner for assessment of boost radiation 4 month follow-up 09/10 GnRH re-initiated 09/03/22 after 2 weeks bicalutamide MRI shows recurrent disease within prostate Radiation Oncology assessment 10/12 Dr. Mcelroy at [facility] Referral to [facility] Dr. Gardner PSA - 10/10 PSA < 0.05, 12/08 PSA < 0.05 T 7, 05/10 <0.01, 09/09 <0.1 8, 01/09 0.3 7, 08/11 P 23 T 199, 10/12 9.2 T4, 03/12 19 Prostate cancer: Initial Marilu 6 treatment brachytherapy 2007 followed by rising PSA Last GnRH 09/03/22 Prostate cancer was diagnosed 2007. The Marilu grade is 3+3 volume 27 g, initial PSA 6.4. TNM Classification of Malignant Tumours (TNM) T1c. The Debra (NCCN) risk category is Low Risk (PSA< 10, Gl < 7, T1c). Initial therapy included 2007 brachytherapy, - observation November 2015, hormonal therapy finasteride and bicalutamide Oct 2016 Finasteride, bicalutamide, tamoxifen for breast tenderness Jun 2017 Finasteride 3x a week, bicalutamide daily, tamoxifen weekly 01/05 Dutasteride daily, tamoxifen weekly for breast tenderness 06/20/20 GnRH with Xtandi - 12/08 GnRH, 06/10 GnRH - 12/09 break from hormone therapy Recent labs included a PSA (prostate-specific antigen) Jun 2017 1.0 01/05 4.5 T 795 04/06 5.9 07/07 PSA 0.2 T 54 10/08 PSA < 0.1, T < 12, 04/07 PSA < 0.1, T < 20 10/09 9.2 T 100, 06/09 4.4 T 16 Recent imaging included January 2015 Bone scan , with no evidence of metastasis - 11/09 , an MRI (magnetic resonance imaging), seeds in prostate, 20 g prostate, diffuse changes. Consistent with persistent disease - 03/11 bone scan no evidence of osteopenia - 09/10 MRI recurrent disease within prostate, no evidence of extension, PI-RADS 5 - 03/12 PET-CT residual disease within prostate, no disease defined elsewhere Therapeutic plan: assessment for boost radiation - evaluated at [facility], referral to [facility] with Dr. Gardner Erectile dysfunction September 2020 - trial of daily tadalafil 10 mg [facility] Medical History (Updated 01/06/24 @ 13:38 by Fermin Haider MD) Biochemically recurrent castration-sensitive adenocarcinoma of prostate Hyperlipidemia Diabetes mellitus, type II Breast tenderness Erectile dysfunction BPH (benign prostatic hyperplasia) Prostate cancer Surgical History History of surgery Review of Systems Const Denies chills and Denies fever(s) Card Reports no additional complaints and Denies syncope Resp Denies cough GI Denies abdominal pain and Denies heartburn Reports as per HPI and Denies change in libido Neuro Denies syncope Psych Denies change in libido Endo Denies change in libido Physical Exam Const General: cooperative, healthy appearing, comfortable and no acute distress Orientation/consciousness: patient oriented x3 HEENT Face and sinus: Yes normal facial exam Mouth: moist mucous membranes Neck Neck: Yes normal visual inspection, Yes full ROM and Yes trachea midline Chest Chest palpation & inspection: normal inspection of the chest Resp Effort & Inspection: normal respiratory effort, able to speak in complete sentences and no respiratory distress GI Inspection: Yes normal to inspection Back/Spine/Pelvis Cervical Spine: normal cervical lordosis Thoracic/Lumbar Spine: thoracic and lumbar spine normal to inspection Skin General skin exam: no rashes or lesions noted Neuro General: patient oriented x3, gait normal, tone normal and moves all extremities Extrem General: Yes normal to inspection and Yes capillary refill normal Assessment & Plan Assessment & Plan (1) Erectile dysfunction due to arterial insufficiency: Code(s): N52.01 - Erectile dysfunction due to arterial insufficiency Category: Medical (2) Prostate cancer: Code(s): C61 - Malignant neoplasm of prostate Category: Medical (3) 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: Code(s): C61 - Malignant neoplasm of prostate; R97.21 - Rising PSA following treatment for malignant neoplasm of prostate; Z19.2 - Hormone resistant malignancy status Category: Medical Plan Repeat PSMA scan Orders: Orders Creatinine 12/07/23 C61 - Malignant neoplasm of prostate, R97.21 - Rising PSA following treatment for malignant neoplasm of prostate, Z19.1 - Hormone sensitive malignancy status PET CT fusion skull to thigh 12/07/23 C61 - Malignant neoplasm of prostate, R97.21 - Rising PSA following treatment for malignant neoplasm of prostate, Z19.1 - Hormone sensitive malignancy status Blood Urea Nitrogen 12/07/23 C61 - Malignant neoplasm of prostate, R97.21 - Rising PSA following treatment for malignant neoplasm of prostate, Z19.1 - Hormone sensitive malignancy status Patient Instructions: Imaging studies, laboratory and physical exam results were discussed and reviewed in detail. No major barriers to patient understanding were identified. An opportunity to ask questions regarding the treatment plan was provided. All questions were answered. The patient expressed understanding and agreement with the above treatment plan. The patient is aware they should contact our office by phone for worsening of their current condition or the appearance of new urologic symptoms. Compliance is encouraged with any medications and followup testing that is ordered. It is a privilege to participate in the urologic care of your patient. If you have any questions or concerns regarding treatment for the above conditions, or other urologic issues, please do not hesitate to contact me. The office telephone contact is [phone]. This note is constructed using voice recognition software. While every effort has been made to ensure accuracy thread trimmer errors may have been included. Yours sincerely, Dr Fermin Haider MD, DEL[facility] - Urology Providers of Expert, Compassionate Care for the Genitourinary System
== END 2023-12-07 15:16 | disposition home or self-care (01) ==
PROVIDERS: PCP Internal Medicine; Visit Provider Urology
DX: C61 Malignant neoplasm of prostate (principal); N52.01 Erectile dysfunction due to arterial insufficiency; R97.21 Rising PSA following treatment for malignant neoplasm of prostate; Z19.2 Hormone resistant malignancy status
CPT/HCPCS: 99214

== ENCOUNTER → 2023-12-07 13:58 | Outpatient (BNVA) | payer MEDICARE, SELFPAY | PROVIDERS: PCP Internal Medicine; Visit Provider Urology | DX: C61 Malignant neoplasm of prostate (principal); R97.21 Rising PSA following treatment for malignant neoplasm of prostate; Z19.1 Hormone sensitive malignancy status; Z79.899 Other long term (current) drug therapy | CPT/HCPCS: 99212 ==

== ENCOUNTER 2024-03-03 09:56 | Outpatient (REF) | payer MEDICARE, SELFPAY ==
[2024-03-03 14:18] LABS: Blood Urea Nitrogen 16 mg/dL (9-16); Estimated Glomerular Filt Rate 55
== END 2024-03-03 09:57 | disposition home or self-care (01) ==
LOC: HO.HMGCLDS 09:56
PROVIDERS: PCP Internal Medicine; Visit Provider Urology
DX: C61 Malignant neoplasm of prostate (principal); R97.21 Rising PSA following treatment for malignant neoplasm of prostate; Z19.1 Hormone sensitive malignancy status
CPT/HCPCS: 36415; 82565; 84520

== ENCOUNTER 2024-09-26 14:05 | Outpatient (AMB) | payer MEDICARE, SELFPAY ==
--- NOTE | 2024-09-26 14:14 | A.OFFVIS_ITS ---
Intake Visit Reasons: F/u prostate ?? Intake Note: Patient is present for PROSTATE F/U Urology Medication:TADALAFIL Antibiotic Allergy:PRIAMYCIN Blood Thinner:NONE Marketing Professional Required: No Allergies aspirin Adverse Reaction (Unknown, Verified 09/26/24 14:15) stomach upset priamycin Allergy (Unknown, Uncoded 09/26/24 14:15) rash HPI Comments Details: Saadia is a very pleasant Thai male. He is a patient of Dr Smiley. 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 If not fully normalizing would add abiraterone. Would like referral to [facility]. Will refer to Dr. Richardson. 08/12 has not been contacted through [facility] PSA 08/01/23 92, T 137 Restart bicalutamide GnRH week August 26 PSA continuing to rise now 19, T6 Repeated PET-CT at [facility] Confirms tracer uptake in prostate and no evidence of metastatic disease Has upcoming appointment with Dr. Gardner for assessment of boost radiation 4 month follow-up 09/10 GnRH re-initiated 09/03/22 after 2 weeks bicalutamide MRI shows recurrent disease within prostate Radiation Oncology assessment 10/12 Dr. Mcelroy at [facility] Referral to [facility] Dr. Gardner PSA - 10/10 PSA < 0.05, 12/08 PSA < 0.05 T 7, 05/10 <0.01, 09/09 <0.1 8, 01/09 0.3 7, 08/11 P 23 T 199, 10/12 9.2 T4, 03/12 19 Prostate cancer: Initial Marilu 6 treatment brachytherapy 2007 followed by rising PSA Last GnRH 09/03/22 Prostate cancer was diagnosed 2007. The Marilu grade is 3+3 volume 27 g, initial PSA 6.4. TNM Classification of Malignant Tumours (TNM) T1c. The RatnaJyoti (NCCN) risk category is Low Risk (PSA< 10, Gl < 7, T1c). Initial therapy included 2007 brachytherapy, - observation November 2015, hormonal therapy finasteride and bicalutamide Oct 2016 Finasteride, bicalutamide, tamoxifen for breast tenderness Jun 2017 Finasteride 3x a week, bicalutamide daily, tamoxifen weekly 01/05 Dutasteride daily, tamoxifen weekly for breast tenderness 06/20/20 GnRH with Xtandi - 12/08 GnRH, 06/10 GnRH - 12/09 break from hormone therapy Recent labs included a PSA (prostate-specific antigen) Jun 2017 1.0 01/05 4.5 T 795 04/06 5.9 07/07 PSA 0.2 T 54 10/08 PSA < 0.1, T < 12, 04/07 PSA < 0.1, T < 20 10/09 9.2 T 100, 06/09 4.4 T 16 Recent imaging included January 2015 Bone scan , with no evidence of metastasis - 11/09 , an MRI (magnetic resonance imaging), seeds in prostate, 20 g prostate, diffuse changes. Consistent with persistent disease - 03/11 bone scan no evidence of osteopenia - 09/10 MRI recurrent disease within prostate, no evidence of extension, PI- RADS 5 - 03/12 PET-CT residual disease within prostate, no disease defined elsewhere Therapeutic plan: assessment for boost radiation - evaluated at [facility], referral to [facility] with Dr. Gardner Erectile dysfunction September 2020 - trial of daily tadalafil 10 mg [facility] Medical History (Updated 01/06/24 @ 13:38 by Fermin Haider MD) Biochemically recurrent castration-sensitive adenocarcinoma of prostate Hyperlipidemia Diabetes mellitus, type II Breast tenderness Erectile dysfunction BPH (benign prostatic hyperplasia) Prostate cancer Surgical History History of surgery Review of Systems Const Denies chills and Denies fever(s) Card Reports no additional complaints and Denies syncope Resp Denies cough GI Denies abdominal pain and Denies heartburn Reports as per HPI and Denies change in libido Neuro Denies syncope Psych Denies change in libido Endo Denies change in libido Physical Exam Const General: cooperative, healthy appearing, comfortable and no acute distress Orientation/consciousness: patient oriented x3 HEENT Face and sinus: Yes normal facial exam Mouth: moist mucous membranes Neck Neck: Yes normal visual inspection, Yes full ROM and Yes trachea midline Chest Chest palpation & inspection: normal inspection of the chest Resp Effort & Inspection: normal respiratory effort, able to speak in complete sentences and no respiratory distress GI Inspection: Yes normal to inspection Back/Spine/Pelvis Cervical Spine: normal cervical lordosis Thoracic/Lumbar Spine: thoracic and lumbar spine normal to inspection Skin General skin exam: no rashes or lesions noted Neuro General: patient oriented x3, gait normal, tone normal and moves all extremities Extrem General: Yes normal to inspection and Yes capillary refill normal Assessment & Plan Assessment & Plan (1) 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 No major barriers to patient understanding were identified. An opportunity to ask questions regarding the treatment plan was provided. All questions were answered. The patient expressed understanding and agreement with the above treatment plan. The patient is aware they should contact our office by phone for worsening of their current condition or the appearance of new urologic symptoms. Compliance is encouraged with any medications and followup testing that is ordered. It is a privilege to participate in the urologic care of your patient. If you have any questions or concerns regarding treatment for the above conditions, or other urologic issues, please do not hesitate to contact me. The office tel ephone contact is [phone]. This note is constructed using voice recognition software. While every effort has been made to ensure accuracy well logging mud analysis captain errors may have been included. 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
== END 2024-09-26 14:41 | disposition home or self-care (01) ==
PROVIDERS: PCP Internal Medicine; Visit Provider Urology
DX: C61 Malignant neoplasm of prostate (principal); R97.21 Rising PSA following treatment for malignant neoplasm of prostate; Z19.2 Hormone resistant malignancy status
CPT/HCPCS: 99213

== ENCOUNTER → 2024-09-26 14:05 | Outpatient (BNVA) | payer MEDICARE, SELFPAY | PROVIDERS: PCP Internal Medicine; Visit Provider Urology | DX: C61 Malignant neoplasm of prostate (principal); R97.21 Rising PSA following treatment for malignant neoplasm of prostate; Z19.2 Hormone resistant malignancy status | CPT/HCPCS: 99212 ==